=== PATIENT | female | born 1970 | race Two or more races ===

== ENCOUNTER 2023-08-05 16:22 | Emergency (ER) | payer MEDICAID, OTHER ==
[~2023-08-05] VITALS: Ht 134.6 cm; Wt 79.5 kg
[2023-08-05] MEDS ORDERED: IBUP-1506 PO (16:28)
[2023-08-05] MEDS ORDERED: IBUPROFEN 600 MG TABLET PO ONE (19:15)
[2023-08-05 21:30] VITALS: BP 117/58; PULSE 68; RESP 18; TEMP 98
== END 2023-08-05 21:39 | disposition home or self-care (01) ==
LOC: EMS 16:24
DX: S70.02XA Contusion of left hip, initial encounter (principal); S70.01XA Contusion of right hip, initial encounter; S80.02XA Contusion of left knee, initial encounter; Z96.642 Presence of left artificial hip joint; Z98.890 Other specified postprocedural states; V09.9XXA Pedestrian injured in unspecified transport accident, initial encounter; Y93.89 Activity, other specified; Y92.89 Other specified places as the place of occurrence of the external cause; Y99.8 Other external cause status
CPT/HCPCS: 73521; 99284; 73562-TC; Z7502; Z7610